=== PATIENT | female | born 1960 | race Caucasian/White ===

== ENCOUNTER → 2017-04-18 | Outpatient (CLI) | payer BC ==
--- NOTE | 2017-04-21 10:09 | Diagnostic Imaging Report ---
Bilateral screening mammogram 2D views with tomosynthesis. The current study was also evaluated with a Computer Aided Detection (CAD) system. INDICATION: Screening. No current complaints stated on the questionnaire. COMPARISON: 04/09/2016. FINDINGS: The breasts are composed of heterogeneously dense parenchyma which may decrease mammographic sensitivity. No mass, architectural distortion, or suspicious calcification seen. Allowing for technique and positional differences, no suspicious change is seen. IMPRESSION: No significant change. ACR BI-RADS Category 2: Benign findings. Result letter will be mailed to the patient. Note: At least 10% of breast cancer is not imaged by mammography. Dictated by: Dictated on workstation # [id number]
== END ==
LOC: RAD 09:36
PROVIDERS: ATTEND Nurse Practitioner
DX: Z12.31 Encounter for screening mammogram for malignant neoplasm of breast (principal)
CPT/HCPCS: 77067

== ENCOUNTER → 2018-02-13 | Outpatient (CLI) | payer BC ==
--- NOTE | 2018-02-13 12:52 | Diagnostic Imaging Report ---
EXAMINATION: Magnetic resonance imaging of the left knee without intravenous contrast DATE: February 13, 2018. COMPARISON: None. INDICATION: 58-year-old female, twisting injury of the knee getting into car on February 07, 2018. Persistent left knee pain. TECHNIQUE: Multiplanar/multisequence noncontrast enhanced MR imaging was accomplished. FINDINGS: MENISCI: There is increased signal in the posterior horn of the medial meniscus, likely relating to an ill-defined vertically oriented tear. There is a longitudinal horizontal type tear involving the anterior horn, body, and posterior horn of the lateral meniscus. LIGAMENTS AND TENDONS: The anterior and posterior cruciate ligaments are intact. The medial collateral ligament is intact. The iliotibial band, mid third lateral capsular ligament, fibular collateral ligament, biceps femoris tendon, and conjoined tendon are intact. The quadriceps tendon and patella ligament are intact. JOINT: There is generalized approximately 75% cartilage loss of the patella with areas of full-thickness cartilage defect. The medial and lateral compartment cartilage is grossly intact. There is no large knee joint effusion, prominent synovitis, or intra-articular body. BONE: There is an intramedullary lobulated T2 hyperintense lesion measuring 4.0 x 4.0 x 2.6 cm in size which involves both the proximal tibial epiphysis and metaphysis with approximately 75% of the lesion within the metaphysis. Adjacent to the upper and lateral aspect of the lesion, there is a nondisplaced fracture involving the lateral tibial plateau without offset of the articulating surface. There is associated marrow edema. BURSAE AND SOFT TISSUES: There is a partially ruptured Bernard's cyst measuring 2.3 x 2.8 x 8.0 cm in size. There is nonspecific prepatellar subcutaneous edema. IMPRESSION: 1. Acute nondisplaced fracture involving the lateral tibial plateau without offset of the articulating surface. 2. Lobulated T2 hyperintense intramedullary lesion involving both the proximal tibial epiphysis and metaphysis measuring 4.0 x 4.0 x 2.6 cm in size. The lobulated appearance of the lesion and T2 hyperintense signal suggests that this potentially may reflect a cartilage matrix lesion. This may potentially reflect a large enchondroma. Chondroblastoma would also be in the differential diagnosis. Further assessment with radiographs and/or CT is recommended for more complete characterization of the bone lesion. 3. Ill-defined vertically oriented tear involving the posterior horn of the medial meniscus. Longitudinal horizontal type tear involving the entire lateral meniscus. 4. Intact anterior and posterior cruciate ligaments. Additional ligaments and tendons are intact. 5. Moderate to severe patellofemoral compartment osteoarthritis. No knee joint effusion. The report was faxed to the office of Dr. Marte by [email or web address]@ 12:52 PM. Dictated by: Dictated on workstation # [id number]
== END ==
LOC: RAD 09:55
PROVIDERS: ATTEND Orthopaedic Surgery
DX: S83.282A Other tear of lateral meniscus, current injury, left knee, initial encounter (principal); S82.145A Nondisplaced bicondylar fracture of left tibia, initial encounter for closed fracture; S83.242A Other tear of medial meniscus, current injury, left knee, initial encounter; X50.1XXA Overexertion from prolonged static or awkward postures, initial encounter; M17.12 Unilateral primary osteoarthritis, left knee; M89.9 Disorder of bone, unspecified; V48.4XXA Person boarding or alighting a car injured in noncollision transport accident, initial encounter
CPT/HCPCS: 73721

== ENCOUNTER → 2018-03-20 | Outpatient (CLI) | payer BC ==
[~2018-03-20] MED LIST: IOHEXOL 350 MG/ML 100 ML (OMNIPAQUE 350) VIAL IV ONE; NS 250 ML (IVPB) BAG IV ONE; RECEIVED CONTRAST (Hold Metformin) IV SCH
[2018-03-20 12:44] LABS: BUN/CREATININE RATIO 14; CREATININE SERUM 0.76 MG/DL (0.60-1.30); GFR ESTIMATED > 60
--- NOTE | 2018-03-20 14:01 | Diagnostic Imaging Report ---
PROCEDURE: CT left lower extremity with contrast. TECHNIQUE: Multiple axial images of the left lower extremity were obtained after intravenous administration of iodinated contrast. INDICATION: Tibia fracture, abnormality on prior MRI. COMPARISON: MRI from 02/13/2018. FINDINGS: In the proximal left tibia, there is a lesion which has a chondroid matrix appearance and is multilobulated, measuring approximately 3.1 x 2.6 cm on axial imaging, and 3.9 cm craniocaudal. No cortical breach is seen. The mass appears centered in the metaphysis, although it does extend into the epiphysis. No significant endosteal scalloping is identified. No periosteal reaction is seen. The borders are lobulated, but appear well defined. There is a fracture of the lateral tibial plateau, with 1-2 mm of depression. This appears to be pathologic, extending towards the tibial lesion described above. No other fractures are seen. There are mild degenerative changes in all three compartments. There is a circumscribed cortically based lesion at the posterior tibia which measures 1.8 x 0.9 cm axially, and 3 cm craniocaudal. This may represent an evolving fibroxanthoma. There is no cortical breach or periosteal reaction. No significant joint effusion is seen. The menisci and ligaments are suboptimally evaluated by CT. No abnormal soft tissue enhancement is seen. There is a small Bernard's cyst, which contains small calcified joint bodies. No muscular atrophy is seen. IMPRESSION: 1. Chondroid matrix lesion in the proximal left tibia measures up to 3.9 cm in size, but otherwise has no overtly aggressive features, and most likely represents an enchondroma. 2. Minimally depressed pathologic fracture along the lateral tibial plateau. 3. Small Bernard's cyst with joint bodies. Dictated by: Dictated on workstation # [id number]
== END ==
LOC: RAD 12:08
PROVIDERS: ATTEND Orthopaedic Surgery
DX: D16.22 Benign neoplasm of long bones of left lower limb (principal); M71.22 Synovial cyst of popliteal space [Baker], left knee; M89.9 Disorder of bone, unspecified
CPT/HCPCS: 36415; 73701; 82565; 84520

== ENCOUNTER → 2018-04-16 | Outpatient (CLI) | payer BC ==
--- NOTE | 2018-04-16 09:27 | Diagnostic Imaging Report ---
INDICATION: Screening. TECHNIQUE: Bilateral screening mammograms were performed with CAD. 3D tomosynthesis was also performed and reviewed. COMPARISON: 04/18/2017 back through 05/09/2011. FINDINGS: There are scattered fibroglandular densities bilaterally. There is no dominant mass, spiculated lesion, or suspicious calcification identified. The skin, nipples, and axillae are unremarkable. IMPRESSION: Negative. ACR BI-RADS Category 1: Negative. Result letter will be mailed to the patient. Note: At least 10% of breast cancer is not imaged by mammography. Dictated by: Dictated on workstation # [id number]
== END ==
LOC: RAD 07:32
PROVIDERS: ATTEND Nurse Practitioner
DX: Z12.31 Encounter for screening mammogram for malignant neoplasm of breast (principal); Z78.0 Asymptomatic menopausal state
CPT/HCPCS: 77067

== ENCOUNTER → 2019-04-19 | Outpatient (CLI) | payer BC ==
--- NOTE | 2019-04-19 10:53 | Diagnostic Imaging Report ---
INDICATION: Routine screening. COMPARISON: 04/16/2018 and 04/18/2017. TECHNIQUE: 2D and 3D bilateral screening mammography was performed with CAD. FINDINGS: Both breasts are heterogeneously dense, limiting the sensitivity of mammography. The parenchymal pattern is stable. No mass or malignant appearing microcalcifications are seen. The axillae are unremarkable. IMPRESSION: No mammographic features suspicious for malignancy are identified. ACR BI-RADS Category 1: Negative. Result letter will be mailed to the patient. Note: At least 10% of breast cancer is not imaged by mammography. Dictated by: Dictated on workstation # [id number]
== END ==
LOC: RAD 08:08
PROVIDERS: ATTEND Nurse Practitioner
DX: Z12.31 Encounter for screening mammogram for malignant neoplasm of breast (principal)
CPT/HCPCS: 77067

== ENCOUNTER → 2020-04-20 | Outpatient (CLI) | payer BC ==
--- NOTE | 2020-04-20 14:12 | Diagnostic Imaging Report ---
INDICATION: Routine screening. Comparison is made prior mammogram from 04/19/2019 and 04/16/2018. 2-D and 3-D bilateral screening mammography was performed with CAD. Both breasts are heterogeneously dense, limiting the sensitivity of mammography. No mass or malignant appearing microcalcifications are seen. Axillae are unremarkable. IMPRESSION: BI-RADS Category 1 No mammographic features suspicious for malignancy are identified. ACR BI-RADS Category 1: Negative. Result letter will be mailed to the patient. Note: At least 10% of breast cancer is not imaged by mammography. Dictated by: Dictated on workstation # [id number]
== END ==
LOC: RAD 08:00
PROVIDERS: ATTEND Nurse Practitioner
DX: Z12.31 Encounter for screening mammogram for malignant neoplasm of breast (principal)
CPT/HCPCS: 77063; 77067

== ENCOUNTER → 2021-04-23 | Outpatient (CLI) | payer BC ==
--- NOTE | 2021-04-23 10:55 | Diagnostic Imaging Report ---
INDICATION: Routine screening. COMPARISON: 04/20/2020 and 04/19/2019. TECHNIQUE: 2D and 3D bilateral screening mammography was performed with CAD. FINDINGS: Both breasts are heterogeneously dense, limiting the sensitivity of mammography. The parenchymal pattern is stable. No mass or malignant-appearing microcalcifications are seen. The axillae are unremarkable. IMPRESSION: No mammographic features suspicious for malignancy are identified. ACR BI-RADS Category 1: Negative. Result letter will be mailed to the patient. Note: At least 10% of breast cancer is not imaged by mammography. Dictated by: Dictated on workstation # [id number]
== END ==
LOC: RAD 08:30
PROVIDERS: ATTEND Nurse Practitioner
DX: Z12.31 Encounter for screening mammogram for malignant neoplasm of breast (principal)
CPT/HCPCS: 77063; 77067

== ENCOUNTER → 2022-04-02 | Outpatient (CLI) | payer BC | LOC: CARD 11:00 | PROVIDERS: ATTEND Nurse Practitioner | DX: E78.00 Pure hypercholesterolemia, unspecified (principal); I10 Essential (primary) hypertension | CPT/HCPCS: 93306 ==

== ENCOUNTER → 2022-04-24 | Outpatient (CLI) | payer BC ==
--- NOTE | 2022-04-24 12:11 | Diagnostic Imaging Report ---
INDICATION: Routine screening. COMPARISON: 04/23/2021 and 04/20/2020. TECHNIQUE: 2D and 3D bilateral screening mammography was performed with CAD. FINDINGS: Both breasts are heterogeneously dense, limiting the sensitivity of mammography. The parenchymal pattern is stable. No mass or malignant-appearing microcalcifications are seen. The axillae are unremarkable. IMPRESSION: No mammographic features suspicious for malignancy are identified. ACR BI-RADS Category 1: Negative. Result letter will be mailed to the patient. Note: At least 10% of breast cancer is not imaged by mammography. Dictated by: Dictated on workstation # [id number]
== END ==
LOC: RAD 08:00
PROVIDERS: ATTEND Nurse Practitioner
DX: Z12.31 Encounter for screening mammogram for malignant neoplasm of breast (principal)
CPT/HCPCS: 77063; 77067